=== PATIENT | male | born 1975 | race Caucasian/White ===

== ENCOUNTER 2018-11-19 10:41 | Day surgery (SDC) | payer OTHER, SELFPAY ==
[2018-11-19 11:05] VITALS: BP 140/87; PULSE 62; RESP 16; TEMP 36.7; O2SAT 100; BMI 24.2
[2018-11-19] MEDS: SODIUM CHLORIDE 0.9% 1,000 ML 200 ML IV (11:15)
--- NOTE | 2018-11-19 11:21 | PM.PREOP ---
Pre-operative Note Interval Note History & Physical reviewed/Exam performed by Physician: Yes Changes to H&P: No ASA Class (for procedural sedation): I
[2018-11-19] MEDS: GLUCAGON,HUMAN RECOMBINANT 1 MG/ML VIAL IV (11:32)
--- NOTE | 2018-11-19 11:58 | PM.OP.ENDO ---
Operative Date/Time/Diagnoses Date of procedure: 11/19/18 Time of procedure: 11:58 Pre-op diagnosis: Rectal bleeding. Post-op diagnosis: same (Normal colon. Internal hemorrhoids.) Procedure & Clinicians Study performed: Colonoscopy. Anoscopy with 3 column hemorrhoidal banding Same procedure as scheduled: Yes Indications: Rectal bleeding Surgeon: Saeed Oseguera Procedure Notes SCOAP/Timeout: Performed Procedure in detail: The patient was placed in the left lateral decubitus position and underwent IV sedation directed by the surgeon consisting of fentanyl and Versed. Digital exam was unremarkable. There were visible edges of internal hemorrhoids. No ulcerations seen at this time. The scope was inserted and advanced through the rectum into the sigmoid, descending, transverse, and ascending colon. No lesions were seen.. The cecum was reached identified by the ileocecal valve and the appendiceal opening. The ileocecal valve was successfully cannulated. The terminal ileum was normal in appearance. The scope was gradually brought out. No Polyps were found. The scope ultimately was retroflexed in the rectum. The appearance was remarkable for internal hemorrhoids. The scope was removed and the patient tolerated the procedure well. prep was good once I irrigated out the liquids remaining in the colon. An anoscope was inserted and circumferential exam perform. Three columns of hemorrhoids were banded. These were located at the left lateral right anterior lateral and right anterior lateral. The smallest of these was the right anterior lateral lesion. The anoscope was removed and the patient tolerated the procedure well Scope withdrawal time: 11.5 minutes Sedation minutes: 35 Findings: internal hemorrhoids Specimen(s): none sent Complications: none Recommendations: Colonscopy in 10 years Follow up: as needed Disposition: PACU
[2018-11-19 12:00] VITALS: BP 135/83; PULSE 85; RESP 15; TEMP 36.7; O2SAT 97
[2018-11-19] MEDS: MIDAZOLAM 5 MG/5 ML VIAL IV (12:00)
[2018-11-19] MEDS: fentaNYL 250 MCG/5 ML INJ IV (12:00)
--- NOTE | 2018-11-19 12:13 | SUR.PHASEII ---
1200 to OPD from Endo; awake, oriented, talking appropriately. Denies pain, Skin warm and dry, resp unlabored. PO fluids given. SO to bedside. EKG rhythm strip from endo discussed with Dr. Oseguera, no concerns, patient assymptomatic of any cardiac symptoms. 1215 Dr. Oseguera speaking with patient and SO
[2018-11-19 12:20] VITALS: BP 118/71; PULSE 70; RESP 14; TEMP 36.9; O2SAT 96
--- NOTE | 2018-11-19 13:31 | SUR.PHASEII ---
1220 Dr. Oseguera spoke with patient, explained findings, expectations, recommended follow-up with PCP for history of chest pain. Patient denies any current pain, no diaphoresis, shortness of breath or other symptoms. Patient runs 12-15 miles/week, doctor told him that pain could be from a non-cardiac source, possibly the esophagus. Instructions review with patient and SO. Patient forgetful, asks the same questions repeatedly. 1240 Stable on feet, no new questions/concerns. Explained recommendation for stool softener to avoid constipation. 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
== END 2018-11-19 12:40 | disposition home or self-care (01) ==
PROVIDERS: PCP Family Medicine; Visit Provider Specialist
PROC: 0DJD8ZZ Inspection of Lower Intestinal Tract, Via Natural or Artificial Opening Endoscopic (ICD-10-PCS; CPT 45378; principal; 2018-11-19 10:45)
DX: K64.8 Other hemorrhoids (principal); K62.5 Hemorrhage of anus and rectum
CPT/HCPCS: 46221; J1610; J2250; J3010

== ENCOUNTER → 2022-11-07 10:28 | Outpatient (CLI) | payer OTHER, SELFPAY ==
[2022-11-07 19:31] LABS: Add Manual Diff / Slide Review NO; Basophils Absolute Auto 0 /uL (0-100); Basophils Percent Auto 0.6 % (0-2); Eosinophils Absolute Auto 100 /uL (0-450); Eosinophils Percent Auto 1.6 % (2-4); Hematocrit 41.8 % (41-53); Hemoglobin 14.3 g/dL (13.5-17.5); Lymphocytes Absolute Auto 1800 /uL (1100-4500); Lymphocytes Percent Auto 32.2 % (25-40); Mean Corpuscular HGB Conc 34.3 % (30-36); Mean Corpuscular Hemoglobin 29.1 PG (26-34); Mean Corpuscular Volume 84.9 fL (80-100); Monocytes Absolute Auto 400 /uL (0-900); Monocytes Percent Auto 7.8 % (3-14); Neutrophils Absolute Auto 3300 /uL (1500-7000); Neutrophils Percent Auto 57.8 % (50-75); Platelet Count 355 X10^3/uL (150-400); Red Blood Cell Count 4.92 X10^6/uL (4.5-5.9); Red Cell Distribution Width 13.9 % (11.6-14.8); White Blood Cell Count 5.6 X10^3/uL (4.5-11.0)
[2022-11-07 19:56] LABS: Alanine Aminotransferase 23 IU/L (<50); Albumin 4.7 g/dL (3.5-5.0); Albumin Globulin Ratio 1.9 (1.0-2.8); Alkaline Phosphatase 66 U/L (38-126); Aspartate Aminotransferase 20 IU/L (17-59); BUN Creatinine Ratio 15.2 (6-22); Bilirubin Total 0.9 mg/dL (0.2-1.3); Blood Urea Nitrogen 12 mg/dL (9-20); Calcium 9.7 mg/dL (8.4-10.2); Carbon Dioxide 29 mmol/L (22-32); Chloride 101 mmol/L (98-107); Cholesterol 194 mg/dL (140-199); Estimated Glomerular Filt Rate > 60 mL/min (>60); Globulin 2.5 g/dL (1.7-4.1); Glucose 105 mg/dL (70-100); HDL Cholesterol 73 mg/dL (40-60); HEMOLYSIS < 15 (0-50); LDL Cholesterol Calculated 106 mg/dL (<100); Potassium 4.2 mmol/L (3.4-5.1); Sodium 139 mmol/L (137-145); Total Protein 7.2 g/dL (6.3-8.2); Triglycerides 73 mg/dL (35-150)
[2022-11-09 02:07] LABS: Labcorp Hemoglobin (Hb) A1c 5.3 % (4.8-5.6)
== END ==
PROVIDERS: PCP Physician Assistant; Visit Provider Physician Assistant
DX: Z13.1 Encounter for screening for diabetes mellitus (principal); Z13.220 Encounter for screening for lipoid disorders
CPT/HCPCS: 80053; 80061; 83036; 85025

== ENCOUNTER → 2023-01-22 10:48 | Outpatient (CLI) | payer OTHER, SELFPAY ==
--- NOTE | 2023-01-22 10:51 | DI.MRI.S_ITS ---
PROCEDURE: MR LUMBAR SPINE WO CON INDICATIONS: chronic lumbar pain w/ sciatica since Oct TECHNIQUE: Noncontrast sagittal T1 spin echo and T2 fast echo, sagittal STIR, and T2 fast spin echo through the lumbar spine. In cases with scoliosis, additional coronal T2 fast spin echo may be performed. COMPARISON: [facility] ([place]), CR, XR LUMBAR SPINE 2-3V, 10/16/2022, 15:24. FINDINGS: Image quality: Excellent. Alignment and Curvature: There is trace retrolisthesis of L3 on L4, L4 on L5 and L5 on S1. Bone Marrow: Marrow is of normal overall signal. No acute vertebral body compression fractures. Spinal Cord: Conus medullaris terminates at the L2 level. Visualized cord demonstrates normal signal and size. Paraspinous Soft Tissues: No paravertebral masses. T12-L1: No disc bulge, spinal stenosis or foraminal narrowing. L1-L2: No disc bulge, spinal stenosis or foraminal narrowing. L2-L3: No disc bulge, spinal stenosis or foraminal narrowing. L3-L4: Minimal disc bulge without spinal stenosis or foraminal narrowing. Small left facet joint cyst is noted posteriorly, not affecting the spinal canal. L4-L5: Minimal disc bulge without spinal stenosis. Minimal bilateral foraminal narrowing. L5-S1: No disc bulge, spinal stenosis or foraminal narrowing. IMPRESSION: Scattered minimal early degenerative changes as above. Dictated by: Stacey Hernandez M.D. on 01/22/2023 at 16:35 Approved by: Stacey Hernandez M.D. on 01/22/2023 at 16:37
== END ==
PROVIDERS: PCP Physician Assistant; Referring Provider Physician Assistant; Visit Provider Physician Assistant
DX: M43.16 Spondylolisthesis, lumbar region (principal); M54.50 Low back pain, unspecified
CPT/HCPCS: 72148

== ENCOUNTER → 2023-06-20 10:59 | Outpatient (CLI) | payer OTHER, SELFPAY ==
[2023-06-20 21:04] LABS: Urine N gonorrhoeae NOT DETECTED
[2023-06-20 21:14] LABS: Urine Chlamydia NOT DETECTED
[2023-06-21 16:49] LABS: Hepatitis B Surface Antigen NEGATIVE s/c (NEGATIVE)
[2023-06-21 17:27] LABS: HIV 1 & 2 Ab/Ag 4th Gen Combo NEGATIVE (NEGATIVE); Hep C Virus Ab w/Reflex Quant NEGATIVE s/c (NEGATIVE)
[2023-06-22 08:10] LABS: RPR Screen Non Reactive (Non Reactive)
== END ==
PROVIDERS: PCP Physician Assistant; Visit Provider Physician Assistant
DX: Z11.3 Encounter for screening for infections with a predominantly sexual mode of transmission (principal); Z72.51 High risk heterosexual behavior; L73.9 Follicular disorder, unspecified
CPT/HCPCS: 86592; 86803; 87340; 87389; 87491; 87591

== ENCOUNTER → 2024-06-09 08:21 | Outpatient (CLI) | payer OTHER, SELFPAY ==
[2024-06-09 20:09] LABS: Hepatitis B Surface Antigen NEGATIVE s/c (NEGATIVE)
[2024-06-09 20:26] LABS: HIV 1 & 2 Ab/Ag 4th Gen Combo NEGATIVE (NEGATIVE); Hep C Virus Ab w/Reflex Quant NEGATIVE s/c (NEGATIVE)
[2024-06-09 21:15] LABS: Urine N gonorrhoeae NOT DETECTED
[2024-06-09 21:40] LABS: Urine Chlamydia NOT DETECTED
[2024-06-11 02:08] LABS: RPR Screen Non Reactive (Non Reactive)
== END ==
PROVIDERS: PCP Physician Assistant; Visit Provider Physician Assistant
DX: Z11.3 Encounter for screening for infections with a predominantly sexual mode of transmission (principal)
CPT/HCPCS: 86592; 86695; 86696; 86803; 87340; 87389; 87491; 87591